=== PATIENT | female | born 1980 | race Caucasian/White ===

== ENCOUNTER 2025-05-28 23:57 | Emergency (ER) | payer BC ==
[~2025-05-28] VITALS: Ht 162.6 cm; Wt 68.0 kg
[2025-05-29] MEDS ORDERED: ONDANSETRON HCL/PF 4 MG/2 ML VIAL ONE (01:26)
[2025-05-29] MEDS: IV NS 0.9% 500 ML BAG IV ONE (01:37)
[2025-05-29] MEDS: ONDANSETRON HCL/PF 4 MG/2 ML VIAL IVP ONE (01:38)
[2025-05-29 01:42] LABS: PLATELET COUNT (AUTO) 240 K/uL (150-450); RED BLOOD CELL COUNT(AUTO) 4.19 MIL/uL (4.0-5.2); RED CELL DISTRIBUTION WIDTH 14.2 % (11.5-15.0); WHITE BLOOD COUNT (AUTO) 8.4 K/uL (4.3-11.0)
[2025-05-29 01:50] LABS: CALCIUM, SERUM 8.9 mg/dL (8.5-10.1); CREATININE 0.8 mg/dL (0.6-1.3); SODIUM SERUM 140 mmol/L (136-145); UREA NITROGEN, BLOOD 17 mg/dL (7-18)
[2025-05-29 01:56] LABS: ASPARTATE AMINOTRANSFERASE 15 U/L (15-37); TOTAL PROTEIN, SERUM 7.6 g/dL (6.4-8.2)
[2025-05-29 02:02] LABS: INR 0.97 (0.91-1.10)
[2025-05-29 02:13] LABS: APPEARANCE,URINE CLEAR (CLEAR); BLOOD, URINE NEGATIVE Ery/uL (NEGATIVE); LEUKOCYTE ESTERASE ,URINE NEGATIVE (NEGATIVE); NITRITE, URINE NEGATIVE (NEGATIVE); UGLUCOSE NEGATIVE (NEGATIVE)
[2025-05-29 02:15] LABS: PREGNANCY TEST URINE QUAL NEGATIVE (NEGATIVE)
[2025-05-29 03:37] VITALS: BP 97/56; TEMP 98.2; O2SAT 98
== END 2025-05-29 03:37 | disposition home or self-care (01) ==
LOC: ER 05-29 00:05
DX: R42 Dizziness and giddiness (principal); R11.2 Nausea with vomiting, unspecified; R10.2 Pelvic and perineal pain; Z90.13 Acquired absence of bilateral breasts and nipples; Z85.3 Personal history of malignant neoplasm of breast; Z60.2 Problems related to living alone
CPT/HCPCS: 99285; 96374; 70450; 71045; 93005; 85025; 80048; 80076; 84703; 81003; 36415; 84484; 85730; 82962; 84702; J2405; J7040